=== PATIENT | female | born 1970 | race Caucasian/White ===

== ENCOUNTER → 2017-12-30 16:18 | Outpatient (CLI) | payer OTHER, SELFPAY ==
--- NOTE | 2017-12-30 17:05 | MRI_ITS ---
STUDY: MRI CERVICAL SPINE WITHOUT CONTRAST REASON FOR EXAM: Female, 47 years old. Radiculopathy of the left arm TECHNIQUE: Standardized fat and water weighted pulse sequences were obtained in the sagittal and axial planes. COMPARISON: November 22 2009 FINDINGS: Normal foramen magnum and brainstem-cervical cord junction. Normal craniovertebral junction. Normal anterior atlantoaxial articulation. Normal odontoid process. Decreased cervical lordosis. Normal vertebral bodies and posterior osseous elements. C2-3: Normal endplates. Normal disc height, signal and morphology. Normal central canal and intervertebral neural foramina. C3-4: Normal endplates. Normal disc height, signal and morphology. Normal central canal and intervertebral neural foramina. C4-5: Normal endplates. Normal disc height, signal and tiny central disc protrusion.. Normal central canal and intervertebral neural foramina. C5-6: Mild spurring.. Normal disc height, signal and minor bulging disc osteophyte complex. Normal central canal. Minor bilateral neural foraminal encroachment secondary to disc and bony hypertrophy. C6-7: Normal endplates. Normal disc height, signal and minor bulging of the disc with moderate size left posterolateral/foraminal disc/osteophyte protrusion. Mild narrowing of the central canal on the left with impingement upon the ventral surface of the cord and severe left neuroforaminal stenosis C7-T1: Normal endplates. Normal disc height, signal and morphology. Normal central canal and intervertebral neural foramina. Normal cervical cord. Normal visualized soft tissue structures. MRI/Spine Cervical (Routine) IMPRESSION: Minor bilateral neural foraminal encroachment at C5-6 secondary to bony hypertrophy. Mild narrowing of the the central canal on the left at C6-7 with impingement on the cord and severe left neuroforaminal stenosis due to disc and bony hypertrophy Electronically Signed: Magnus Pierce MD at 21:36 EDT , Service support ,
== END ==
LOC: MRI 16:20
PROVIDERS: Family Provider Family Medicine; PCP Family Medicine; Referring Provider Chiropractor; Visit Provider Chiropractor
DX: M99.01 Segmental and somatic dysfunction of cervical region (principal); M54.12 Radiculopathy, cervical region
CPT/HCPCS: 72141

== ENCOUNTER 2018-12-03 14:17 | Emergency (ER) | payer OTHER, SELFPAY ==
[2018-12-03 14:17] VITALS: BP 143/84; PULSE 77; RESP 16; TEMP 36.1; O2SAT 97; BMI 35.5
--- NOTE | 2018-12-03 14:19 | EKG12_ITS ---
Test Reason : CP Blood Pressure : / mmHG Vent. Rate : 072 BPM Atrial Rate : 072 BPM P-R Int : 164 ms QRS Dur : 086 ms QT Int : 386 ms P-R-T Axes : 038 008 014 degrees QTc Int : 422 ms Normal sinus rhythm Normal ECG Confirmed by IZABELLA JERNIGAN, SAMEER ([id number]), commercial production editor YO EARLY ([id number]) on 12/05/2018 1:42:59 PM Referred By: АНДРЕЙ/RAYMOND Confirmed By:ALICIA PAREKH MD
[2018-12-03 14:34] LABS: Absolute Lymphocyte Count 2.91 X10^3/uL (0.83-4.51); Absolute Neutrophil Count 4.7 X10^3/uL (2.0-7.7); Basophil# 0.07 X10^3/uL; Basophil% 0.8 % (0-1); Eosinophil# 0.26 X10^3/uL; Eosinophils% 3.1 % (0-5); Hemoglobin 13.1 g/dL (12.0-15.0); Lymphocyte # 2.91 X10^3/ul (4.0); Lymphocyte % 34.3 % (19-41); Mean Corp Hgb Conc 33.6 g/dL (32-36); Mean Corpuscular Hgb 30.4 pg (27.0-32.0); Mean Corpuscular Volume 90.5 fL (81-99); Mean Platelet Vol. 10.6 fl (6.2-12.0); Monocyte% 5.9 % (0-10); NRBC Flagged by Analyzer 0 % (0-5); Neutrophil # 4.72 X10^3/uL (2.7-7.7); Neutrophil % 55.5 % (47-70); POSITIVE MORPHOLOGY YES; Platelet Count 240 K/mm3 (150-450); RBC Distribution Width CV 13.4 % (11.6-14.6); RBC Distribution Width SD 44.4 fl (35.1-43.9); Red Blood Count 4.31 M/mm3 (4.2-5.4); White Blood Count 8.5 K/mm3 (4.4-11.0)
--- NOTE | 2018-12-03 14:35 | RAD_ITS ---
STUDY: X-RAY CHEST REASON FOR EXAM: Female, 48 years old. Chest pain. TECHNIQUE: PA and lateral views of the chest. COMPARISON: Comparison is made with prior study dated April 05, 2016. FINDINGS: Mild degree of increased markings at the lung bases suggestive of mild bibasilar scarring. There is no demonstrated pleural abnormality. Normal size heart. Normal mediastinum and lola. Normal visualized pulmonary arteries. Normal visualized aortic arch and descending thoracic aorta. There are degenerative changes of the visualized thoracic spine. Normal visualized ribs, clavicles, and shoulders. There is no demonstrated abnormality of the visualized soft tissue structures of the upper abdomen. RAD/Chest 1 View IMPRESSION: Mild increase interstitial markings at the lung bases suggestive of bibasilar scarring. Electronically Signed: Kirby Escoto, at 15:12 EDT , Service support ,
[2018-12-03 14:36] LABS: Differential Indicated SCAN CRITERIA MET
[2018-12-03 14:54] LABS: Anion Gap 3 (5-15); BUN 12 mg/dL (7-18); BUN/Creat Ratio 13.4 RATIO (10-20); Calcium,Total 8.9 mg/dL (8.5-10.1); Chloride 108 mmol/L (98-107); EST Glomerular Filtration Rate 71 mL/min (>60); Est Glom Filt Rate - Afr Amer 86 mL/min (>60); Estimated Creatinine Clearance 70.78 ml/min; Glucose 88 mg/dL (74-106); Potassium 4.1 mmol/L (3.5-5.1); Sodium Level 139 mmol/L (136-145)
--- NOTE | 2018-12-03 14:58 | ED.VISSUMM ---
- ER Visit Summary Date of Service: 12/03/18 Chief Complaint: Palpitations History of Present Illness: The patient is a [address] Galvan. She reports that she has palpitations that began yesterday. States these are intermittent and seems as though they last for just 2 beats. She reports is happening multiple times per hour. Nothing seems to bring these on including exertion. She denies any chest pain. No associated nausea, vomiting, diaphoresis, shortness of breath. Patient denies any chest pain or change in dyspnea exertion in the past month. She has had a nonproductive cough for the past 2 weeks. No fever or chills. She also reports that she is having slight reflux. States that this is relieved with wyil-xhl-zgrwyki medications as needed. Patient had a heart catheterization in 2016 that did not require stents. She does have a family history, high blood pressure, and high cholesterol as her cardiac risk factors. Physical Examination: Vitals: Stable. Afebrile. General: Well-nourished and well-developed. Head: Normocephalic atraumatic. Neck: Supple, no lymphadenopathy. No JVD. Nontender. Cardiovascular: Regular rate and rhythm. No murmurs. Respiratory: No respiratory distress. Clear to auscultation bilaterally. Abdominal: Soft, nontender, nondistended, normal bowel sounds. No guarding, rebound, or peritoneal signs. Back: Nontender. Extremities: Nontender, no edema. Skin: Normal color, no rash. Neurologic: Alert and oriented ?3. Cranial nerves II through XII are intact. Normal strength and sensation. Psych: Normal affect. Test Results: EKG is sinus at 72. No acute changes. Is unchanged from 2017. Chest x-ray shows chronic changes. CBC is normal. Chem-7 shows a chloride of 108. Troponin is negative. TSH is 9.38. Emergency Department Course and Treatment: Patient is resting comfortably. She has had no ectopy on the monitor. Treatment Plan: Patient will be discharged instructions to follow-up Dr. Galvan in 3 to 5 days for another exam. I did discuss that her that her TSH is elevated and that she needs to speak with him about the dosing of her Synthroid. Also needs further evaluation for her palpitations. She is instructed to return to emerge department for any worsening symptoms or chest pain. Disposition: To home in improved and stable condition. Impression: 1. Palpitations. This note was generated with [employer] dictation software. It may contain incorrect words, spelling, and punctuation that were not noted in review of the chart prior to signing ED Disposition - Plan for ED Patient: Instructions: Palpitations Referrals: Tree Galvan MD [Primary Care Provider] - 3-5 Days
[2018-12-03 15:29] LABS: Thyroid Stim Hormone (TSH) 9.38 uIU/mL (0.358-3.74)
[2018-12-03 15:42] VITALS: BP 123/60; PULSE 63; RESP 15; O2SAT 98
--- NOTE | 2018-12-03 15:43 | ED.RN ---
PT GIVEN WRITTEN AND VERBAL DISCHARGE INSTRUCTIONS AND HOME GOING INSTRUCTIONS. PT VERBALIZES UNDERSTANDING AND DENIES ANY FURTHER QUESTIONS. PT IS TO FOLLOW UP WITH PCP. IV D/C AND COVERED WITH 2X2 GAUZE AND PAPER TAPE, PRESSURE APPLIED TO SITE X2 MIN. PT DRESSES SELF AND AMBULATES OUT OF DEPT WITH SPOUSE.
== END 2018-12-03 15:45 | disposition home or self-care (01) ==
PROVIDERS: Emergency Provider Emergency Medicine; Family Provider Family Medicine; PCP Family Medicine
DX: R00.2 Palpitations (principal); R79.89 Other specified abnormal findings of blood chemistry; R05 Cough; K21.9 Gastro-esophageal reflux disease without esophagitis; I10 Essential (primary) hypertension; E78.00 Pure hypercholesterolemia, unspecified; E03.9 Hypothyroidism, unspecified; Z79.82 Long term (current) use of aspirin; Z79.899 Other long term (current) drug therapy; F17.200 Nicotine dependence, unspecified, uncomplicated
CPT/HCPCS: 71045; 80048; 84443; 84484; 85025; 93005; 99284; A4216

== ENCOUNTER 2019-09-03 22:10 | Emergency (ER) | payer OTHER, SELFPAY ==
[2019-09-03 22:11] VITALS: BP 153/91; PULSE 86; RESP 16; TEMP 36.4; O2SAT 96; BMI 37.1
--- NOTE | 2019-09-03 22:49 | EKG12_ITS ---
Test Reason : GENERAL ILLNESS Blood Pressure : / mmHG Vent. Rate : 072 BPM Atrial Rate : 072 BPM P-R Int : 184 ms QRS Dur : 090 ms QT Int : 412 ms P-R-T Axes : 052 011 039 degrees QTc Int : 451 ms Normal sinus rhythm Normal ECG Confirmed by JIE JERNIGAN, MERT ([id number]), film editor YO EARLY ([id number]) on 09/08/2019 10:56:19 AM Referred By: ALBERT Confirmed By:MERT CERON MD
--- NOTE | 2019-09-03 22:49 | RAD_ITS ---
STUDY: X-RAY CHEST REASON FOR EXAM: Female, 48 years old. Jarrell like she was going to pass out multiple times today. TECHNIQUE: Frontal and lateral views of the chest. COMPARISON: December 03, 2018 FINDINGS: Increased interstitial markings in the lung bases are unchanged. There is no demonstrated pleural abnormality. Normal size heart. Normal mediastinum and lola. Normal visualized pulmonary arteries. Normal visualized aortic arch and descending thoracic aorta. Normal visualized thoracic spine. Normal visualized ribs, clavicles, and shoulders. There is no demonstrated abnormality of the visualized soft tissue structures of the upper abdomen. RAD/Chest PA and Lateral IMPRESSION: Increased interstitial markings at the lung bases unchanged. Electronically Signed: Tenzin Pollack MD at 23:41 EDT , Service support ,
--- NOTE | 2019-09-03 22:50 | ED.DCSUM_ITS ---
History of Present Illness Chief Complaint: General Illness Informant: Patient Onset: Today Narrative: Patient presents the emergency department for the evaluation of lightheadedness. Symptoms have been intermittent. She had an episode yesterday she had multiple episodes today. She denies any chest pain shortness of breath palpitations sweating. No abdominal symptoms. Symptoms have started with exertion and at rest. She has not had any syncope. She notes that about 2 months ago she had her blood pressure and her Synthroid increased. Patient notes a history of anxiety but states this does not feel like it. Earlier she had an occipital headache took some Tylenol. At that time she also experiencing lightheadedness the headache is resolved but her lightheadedness still comes and goes. She has been seen reportedly several times for TIAs and recently also started Plavix. Past Medical History - Allergies and Home Meds Allergies/Adverse Reactions: Allergies fish oil Adverse Reaction (Verified 09/03/19 22:13) Upset Stomach Primary Care Physician: Tree Galvan MD [Primary Care Provider] - Smoking Status: Current every day smoker - Family History Paternal Family History: Reports: Heart Disease - History of PR and stents Review of Systems General: Reports: - - Lightheadedness. Denies: Chills, Fever, Sweats Eyes: Denies: Visual changes - bilaterally, Diplopia ENT: Denies: Rhinorrhea, Sore throat Cardiovascular: Denies: Chest pain, Palpitations, Heart racing Respiratory: Denies: Dyspnea, Cough, Dyspnea on exertion Gastrointestinal: Denies: Abdominal pain, Nausea, Vomiting, Diarrhea, Melena, Hematochezia Genitourinary: Denies: Dysuria, Hematuria, Frequency Musculoskeletal: Denies: Back pain, Extremity Pain Skin: Denies: Rash, Wounds Neurological: Reports: Parasthesia - Bilateral arms upon waking in the mornings. Denies: Headache, Weakness, Numbness Psych: Reports: Anxiety Physical Exam Vital Signs/Narrative: Vital Signs Temp Pulse Resp BP Pulse Ox 09/03/19 22:11 97.5 F L 86 16 153/91 H 96 Inital Vital Signs reviewed: Yes General: Well nourished, Well developed, No Acute Distress Head: Normocephalic, Atraumatic Eyes: Perrl, EOMI ENT: Moist mucous membranes, No rhinorrhea Neck: Supple, Nontender Cardiovascular: Regular rate, Regular rhythm, No murmurs Respiratory: No distress, CTA bilaterally, Chest nontender Abdomen: Soft, Nontender, Nondistended, Normal bowel sounds Back: Nontender, Normal Inspection Extremities: Nontender, No edema Skin: Normal color, No rash Neurological: Alert, Oriented x3, Cranial nerves II-XII grossly intact, Normal Strength, Normal Sensation Psychological: Normal affect, Normal Mood Diagnostic/Tx/Re-eval Clinical Impression(s) from Imaging Studies Chest X-Ray 09/03/19 22:49 IMPRESSION: Increased interstitial markings at the lung bases unchanged. Electronically Signed: Tenzin Pollack MD at 23:41 EDT , Service support , Laboratory Last Values WBC 10.0 K/mm3 (4.4-11.0) 09/03/19 23:22 RBC 4.50 M/mm3 (4.2-5.4) 09/03/19 23:22 Hgb 13.4 g/dL (12.0-15.0) 09/03/19 23:22 Hct 40.9 % (37-47) 09/03/19 23:22 MCV 90.9 fL (81-99) 09/03/19 23:22 MCH 29.8 pg (27.0-32.0) 09/03/19 23:22 MCHC 32.8 g/dL (32-36) 09/03/19 23:22 RDW Std Deviation 46.5 fl (35.1-43.9) H 09/03/19 23:22 RDW Coeff of Cindy 14.0 % (11.6-14.6) 09/03/19 23:22 Plt Count 251 K/mm3 (150-450) 09/03/19 23:22 MPV 10.8 fl (6.2-12.0) 09/03/19 23:22 Immature Gran % (Auto) 0.400 % (0.0-0.9) 09/03/19 23: Neut % (Auto) 61.2 % (47-70) 09/03/19 23: Lymph % (Auto) 29.7 % (19-41) 09/03/19: [place] % (Auto) 5.8 % (0-10) 09/03/19 23:22 Eos % (Auto) 2.3 % (0-5) 09/03/19 23:22 Baso % (Auto) 0.6 % (0-1) 09/03/19 23:22 Absolute Neuts (auto) 6.1 X10^3/uL (2.0-7.7) 09/03/19 23:22 Absolute Lymphs (auto) 2.98 X10^3/uL (0.83-4.51) 09/03/19 23:22 Nucleated RBC % 0 % (0-5) 09/03/19 23:22 Sodium 138 mmol/L (136-145) 09/03/19 23:22 Potassium 3.8 mmol/L (3.5-5.1) 09/03/19 23:22 Chloride 105 mmol/L (98-107) 09/03/19 23:22 Carbon Dioxide 28.0 mmol/L (21.0-32.0) 09/03/19 23:22 Anion Gap 5 (5-15) 09/03/19 23:22 BUN 12 mg/dL (7-18) 09/03/19 23:22 Creatinine 0.79 mg/dL (0.55-1.02) 09/03/19 23:22 Estim Creat Clear Calc 80.64 ml/min 09/03/19 23:22 Est GFR (MDRD) Af Amer 100 mL/min (>60) 09/03/19 23:22 Est GFR (MDRD) Non-Af 82 mL/min (>60) 09/03/19 23:22 BUN/Creatinine Ratio 15.3 RATIO (10-20) 09/03/19 23:22 Glucose 105 mg/dL (74-106) 09/03/19 23:22 Calcium 8.5 mg/dL (8.5-10.1) 09/03/19 23:22 Total Bilirubin 0.20 mg/dL (0.20-1.00) 09/03/19 23:22 AST 17 U/L (15-37) 09/03/19 23:22 ALT 23 U/L (13-56) 09/03/19 23:22 Alkaline Phosphatase 99 U/L (45-117) 09/03/19 23:22 Troponin I < 0.015 ng/mL (<0.045) 09/03/19 23:22 Total Protein 7.1 g/dL (6.4-8.2) 09/03/19 23:22 Albumin 3.4 g/dL (3.2-5.0) 09/03/19 23:22 Globulin 3.7 g/dL (2.2-4.2) 09/03/19:22 Albumin/Globulin Ratio 0.9 RATIO (0.9-2.4) 09/03/19 23:22 TSH 10.40 uIU/mL (0.358-3.74) H 09/03/19 23:22 Urine Color Yellow (Yellow) 09/03/19 23:10 Urine Clarity Clear (Clear) 09/03/19 23:10 Urine pH 7.0 (5.0 - 8.0) 09/03/19 23:10 Ur Specific [place] 1.015 (1.002-1.030) 09/03/19 23:10 Urine Protein Negative mg/dl (Negative) 09/03/19 23:10 Urine Glucose (UA) Normal mg/dl (Normal) 09/03/19 23:10 Urine Ketones Negative mg/dl (Negative) 09/03/19 23:10 Urine Occult Blood Negative /ul (Negative) 09/03/19 23:10 Urine Nitrite Negative (Negative) 09/03/19 23:10 Urine Bilirubin Negative mg/dL (Negative) 09/03/19 23:10 Urine Urobilinogen Normal mg/dl (Normal) 09/03/19 23:10 Ur Leukocyte Esterase Negative /ul (Negative) 09/03/19 23:10 Urine RBC 0 SEEN /hpf (0-5) 09/03/19 23:10 Urine WBC 0 SEEN /hpf (0-5) 09/03/19 23:10 Ur Squamous Epith Cells 0 SEEN /hpf (5-10) 09/03/19 23:10 Urine Bacteria 0 SEEN /hpf (None Seen) 09/03/19 23:10 Urine Mucus 0 SEEN /hpf (<or=2+) 09/03/19 23:10 Urine Test Negative Negative 09/03/19 23:10 - EKG Initial EKG Interpretation: Sinus Rhythm - EKG demonstrates a normal sinus rhythm at a rate of 72 - Medical Decision Making Patient had no events on the monitor. Orthostatic standing pressure is negative. She is not had any symptoms that she is been here. Her work-up is essentially negative other than an elevated TSH. I would recommend that the patient follow-up with her primary care physician. Of asked that she call them tomorrow so they can look at her labs and make recommendations. ED Disposition - Plan for ED Patient: Disposition: Home or Assisted Living Diagnosis: Lightheadedness, Elevated TSH Referrals: Tree Galvan MD [Primary Care Provider] - As soon as possible Additional Instructions: Your TSH today was 10.4. Please contact your doctors office in the morning to discuss your symptoms and your testing tonight.
[2019-09-03 23:27] LABS: Bacteria 0 SEEN /hpf (None Seen); Color, Urine Yellow (Yellow); Glucose, Dipstick Normal (Normal); Ketone-Dipstick Negative (Negative); Leukocyte Esterase-Dipstick Negative /ul (Negative); Mucous, Urine 0 SEEN /hpf (<or=2+); Nitrite-Dipstick Negative (Negative); Occult Blood-Urine Negative /ul (Negative); Protein-Dipstick Negative (Negative); Red Blood Cells-Urine 0 SEEN /hpf (0-5); Specific Gravity, Urine 1.015 (1.002-1.030); Squamous Epithelial Cells - UA 0 SEEN /hpf (5-10); Urine Bilirubin Dipstick Negative (Negative); Urine Clarity Clear (Clear); Urine Urobilinogen Normal (Normal); White Blood Cells 0 SEEN /hpf (0-5)
[2019-09-03 23:32] LABS: Internal QC Validated? YES +Cl - CLEAR BKGD; Pregnancy, Urine Negative Negative
[2019-09-03 23:37] LABS: Absolute Lymphocyte Count 2.98 X10^3/uL (0.83-4.51); Absolute Neutrophil Count 6.1 X10^3/uL (2.0-7.7); Basophil# 0.06 X10^3/uL; Basophil% 0.6 % (0-1); Eosinophil# 0.23 X10^3/uL; Eosinophils% 2.3 % (0-5); Hematocrit 40.9 % (37-47); Hemoglobin 13.4 g/dL (12.0-15.0); Lymphocyte # 2.98 X10^3/ul (4.0); Lymphocyte % 29.7 % (19-41); Mean Corp Hgb Conc 32.8 g/dL (32-36); Mean Corpuscular Hgb 29.8 pg (27.0-32.0); Mean Corpuscular Volume 90.9 fL (81-99); Mean Platelet Vol. 10.8 fl (6.2-12.0); Monocyte# 0.58 X10^3/uL; Monocyte% 5.8 % (0-10); NRBC Flagged by Analyzer 0 % (0-5); Neutrophil # 6.14 X10^3/uL (2.7-7.7); Neutrophil % 61.2 % (47-70); Platelet Count 251 K/mm3 (150-450); RBC Distribution Width SD 46.5 fl (35.1-43.9)
[2019-09-03 23:55] LABS: ALB/GLOB Ratio 0.9 RATIO (0.9-2.4); AST(SGOT) 17 U/L (15-37); Alanine Aminotransfer ALT/SGPT 23 U/L (13-56); Albumin, Serum 3.4 g/dL (3.2-5.0); Alkaline Phosphatase 99 U/L (45-117); Anion Gap 5 (5-15); BUN 12 mg/dL (7-18); BUN/Creat Ratio 15.3 RATIO (10-20); Calcium,Total 8.5 mg/dL (8.5-10.1); Chloride 105 mmol/L (98-107); Creatinine, Serum 0.79 mg/dL (0.55-1.02); EST Glomerular Filtration Rate 82 mL/min (>60); Est Glom Filt Rate - Afr Amer 100 mL/min (>60); Estimated Creatinine Clearance 80.64 ml/min; Globulin 3.7 g/dL (2.2-4.2); Glucose 105 mg/dL (74-106); Potassium 3.8 mmol/L (3.5-5.1); Protein, Total 7.1 g/dL (6.4-8.2); Sodium Level 138 mmol/L (136-145)
[2019-09-04 00:29] VITALS: BP 139/94; PULSE 78
[2019-09-04 00:30] VITALS: BP 139/94; PULSE 78; RESP 16; O2SAT 99
== END 2019-09-04 00:54 | disposition home or self-care (01) ==
PROVIDERS: Emergency Provider Emergency Medicine; PCP Family Medicine
DX: R42 Dizziness and giddiness (principal); R94.6 Abnormal results of thyroid function studies; F17.200 Nicotine dependence, unspecified, uncomplicated; Z86.73 Personal history of transient ischemic attack (TIA), and cerebral infarction without residual deficits; Z79.02 Long term (current) use of antithrombotics/antiplatelets; Z79.899 Other long term (current) drug therapy
CPT/HCPCS: 71046; 80053; 81001; 81025; 84443; 84484; 85025; 93005; 99285; A4216

== ENCOUNTER 2021-01-05 17:45 | Emergency (ER) | payer MEDICAID, SELFPAY ==
[2021-01-05 17:46] VITALS: BP 152/88; PULSE 89; RESP 16; TEMP 36.1; O2SAT 98; BMI 32.3
--- NOTE | 2021-01-05 17:55 | EKG12_ITS ---
Test Reason : CP Blood Pressure : / mmHG Vent. Rate : 086 BPM Atrial Rate : 086 BPM P-R Int : 174 ms QRS Dur : 074 ms QT Int : 366 ms P-R-T Axes : 047 014 035 degrees QTc Int : 437 ms Normal sinus rhythm Normal ECG Confirmed by JIE JERNIGAN, MERT ([id number]), editorial clerk YO EARLY ([id number]) on 01/10/2021 8:42:15 AM Referred By: BB Confirmed By:MERT CERON MD
[2021-01-05 18:13] LABS: Absolute Lymphocyte Count 3.85 X10^3/uL (0.83-4.51); Basophil# 0.07 X10^3/uL; Basophil% 0.6 % (0-1); Eosinophil# 0.22 X10^3/uL; Eosinophils% 1.9 % (0-5); Hematocrit 41.8 % (37-47); Hemoglobin 13.7 g/dL (12.0-15.0); Lymphocyte # 3.85 X10^3/ul (0.83-4.51); Lymphocyte % 32.8 % (19-41); Mean Corp Hgb Conc 32.8 g/dL (32-36); Mean Corpuscular Volume 85.5 fL (81-99); Mean Platelet Vol. 10.3 fl (6.2-12.0); Monocyte# 0.55 X10^3/uL; Monocyte% 4.7 % (0-10); NRBC Flagged by Analyzer 0 % (0-5); Neutrophil # 6.99 X10^3/uL (2.7-7.7); Neutrophil % 59.7 % (47-70); Platelet Count 323 K/mm3 (150-450); RBC Distribution Width CV 14.1 % (11.6-14.6); RBC Distribution Width SD 43.4 fl (35.1-43.9); Red Blood Count 4.89 M/mm3 (4.2-5.4); White Blood Count 11.7 K/mm3 (4.4-11.0)
--- NOTE | 2021-01-05 18:25 | RAD_ITS ---
STUDY: X-RAY CHEST REASON FOR EXAM: Female, 50 years old. CHEST PAIN TECHNIQUE: AP portable COMPARISON: 09/03/2019 FINDINGS: Minor chronic interstitial changes in the lower lobes.. There is no demonstrated pleural abnormality. Normal size heart. Normal mediastinum and lola. Normal visualized pulmonary arteries. Normal visualized aortic arch and descending thoracic aorta. Normal visualized thoracic spine. Normal visualized ribs, clavicles, and shoulders. There is no demonstrated abnormality of the visualized soft tissue structures of the upper abdomen. No significant change since prior exam RAD/Chest 1 View (Portable) IMPRESSION: No acute cardiopulmonary pathology Electronically Signed: Magnus Pierce MD at 19:38 EDT , Service support ,
[2021-01-05 18:28] LABS: Anion Gap 6 (5-15); BUN 9 mg/dL (7-18); BUN/Creat Ratio 12.5 RATIO (10-20); Calcium,Total 8.9 mg/dL (8.5-10.1); Chloride 108 mmol/L (98-107); Creatinine, Serum 0.72 mg/dL (0.55-1.02); EST Glomerular Filtration Rate 90 mL/min (>60); Est Glom Filt Rate - Afr Amer 109 mL/min (>60); Estimated Creatinine Clearance 86.54 ml/min; Glucose 102 mg/dL (74-106); Potassium 3.9 mmol/L (3.5-5.1); Sodium Level 140 mmol/L (136-145); Troponin-I HS 5 pg/mL (3.0-54.0)
--- NOTE | 2021-01-05 18:38 | ED.VIS.CHEST ---
HPI History of Present Illness Chief Complaint: Chest Pain Narrative Narrative: Patient presents intermittent chest pressure for the past week. Intermittent lightheaded symptoms. No syncopal episodes. Denies vomiting diarrhea. Denies urinary symptoms. States just does not feel well for the past week. Denies cough symptoms. No headache. History of hypertension, hypercholesterolemia, tobacco. Father does have history of coronary disease. Reports stress test 5 years ago she had a heart cath about 5 years ago also. There is no intervention. She states it was done here. No PE risk factors. Takes baby aspirin daily. Reviewing records March 2015 heart cath performed by Dr. Salguero EF 65% minimal left circumflex irregularity. All other vessels were normal. She had abnormal stress test leading to this heart cath. Prior Similar Symptoms: Yes CVD Risk Factors: Positive for Hypertension, Hypercholesterolemia, Family History 1' </=55 and Smoking PFSH PFSH Home Medications aspirin 81 mg PO DAILY@0800 04/04/15 [History Last Taken Unknown] levothyroxine 100 mcg PO DAILY 04/04/15 [History Last Taken Unknown] lisinopril 10 mg PO DAILY 04/04/15 [History Last Taken Unknown] atorvastatin 80 mg PO DAILY 09/04/19 [History Last Taken Unknown] clopidogrel 75 mg PO DAILY 09/04/19 [History Last Taken Unknown] Allergy/AdvReac Type Severity Reaction Status Date / Time fish oil AdvReac Upset Verified 01/05/21 17:48 Stomach Social History Smoking Status: Current every day smoker tobacco type: cigarettes ROS ROS ED Constitutional Constitutional ED: Denies chills, fever(s) or sweats Eyes Eyes: Denies change in vision ENT ENT ED: Denies dysphagia or sore throat Cardiovascular Cardiovascular: Reports chest pain; Denies leg edema, palpitations or racing heartbeat Respiratory/Chest Respiratory/Chest: Denies cough, dyspnea or dyspnea on exertion Gastrointestinal Gastrointestinal: Denies abdominal pain, diarrhea, nausea or vomiting Genitourinary Genitourinary ED: Denies dysuria, hematuria or urinary frequency Musculoskeletal Musculoskeletal: Denies back pain, extremity pain or neck pain Integumentary Denies rash or wounds Neurologic Neurologic: Denies headache(s), paresthesias or weakness EXAM Physical Exam Const Vital Signs: 01/05/21 17:46 01/05/21 18:46 01/05/21 19:10 Temperature 97.0 F L Temperature Source Temporal Pulse Rate 89 74 75 Respiratory Rate 16 16 18 Respiratory Effort Normal Non-Labored Blood Pressure 152/88 H 118/71 113/72 Blood Pressure Mean 109 86 85 Pulse Ox 98 96 Oxygen Delivery Method Room Air Room Air 01/05/21 20:04 01/05/21 21:13 Temperature Temperature Source Pulse Rate 68 71 Respiratory Rate 17 18 Respiratory Effort Blood Pressure 128/65 H 125/85 H Blood Pressure Mean 86 Pulse Ox 96 98 Oxygen Delivery Method Room Air Positive well nourished and well developed General Appearance ED: well developed and NAD HEENT Reports moist mucous membranes normocephalic and atraumatic Eyes PERRL, EOMs intact bilaterally and conjunctivae normal General Eye ED: Yes normal appearance of both eyes Neck no lymphadenopathy and supple General: Negative for tenderness Chest Wall Chest: Negative for tenderness Resp normal respiratory effort and normal air movement Effort and Inspection: symmetric chest movement; Negative for respiratory distress Cardio regular rate, regular rhythm and no murmurs Peripheral Pulses: pulses 2+ throughout GI normal to inspection, nondistended, normoactive bowel sounds and non-tender Palpation: Negative for guarding or rebound tenderness present Back/Spine no CVA tenderness and no thoracic nor lumbar tenderness Extremity normal to inspection General Extremety ED: Negative for edema or tenderness General Extremity: Negative for edema Neuro oriented x3 and no sensory deficits noted Sensorium / Orientation: awake and alert Skin no rashes or lesions noted and no wounds Heart Score History: Slightly/Non-Suspicious ECG: Normal Age: >45 - <65 years Risk Factors: 1 or 2 Risk Factors Troponin: </= Normal Limit Score: 2 MDM MDM MDM Narrative Medical decision making narrative: Patient EKG nonspecific findings. Cardiac work-up troponin negative x2. Heart score is a 2. Patient has had a heart cath [address] Salguero due to abnormal stress test. Minimal findings from the left circumflex. Patient reassured symptom-free on reevaluation. She will follow-up with cardiology as an outpatient. Signs and symptoms discussed return. All questions were answered. Lab Data Attestation: I reviewed the patient's lab results. Labs: Laboratory Results - last 24 hr 01/05/21 01/05/21 01/05/21 18:00 18:00 19:51 WBC 11.7 H RBC 4.89 Hgb 13.7 Hct 41.8 MCV 85.5 MCH 28.0 MCHC 32.8 RDW Std Deviation 43.4 RDW Coeff of Cindy 14.1 Plt Count 323 MPV 10.3 Immature Gran % (Auto) 0.300 Neut % (Auto) 59.7 Lymph % (Auto) 32.8 [place] % (Auto) 4.7 Eos % (Auto) 1.9 Baso % (Auto) 0.6 Absolute Neuts (auto) 7.0 Absolute Lymphs (auto) 3.85 Nucleated RBC % 0 Sodium 140 Potassium 3.9 Chloride 108 H Carbon Dioxide 26.0 Anion Gap 6 BUN 9 Creatinine 0.72 Estim Creat Clear Calc 86.54 Est GFR (MDRD) Af Amer 109 Est GFR (MDRD) Non-Af 90 BUN/Creatinine Ratio 12.5 Glucose 102 Calcium 8.9 Troponin I High Sens 5 4 Radiography Chest X-Ray - ED: 1 View, Read by ED Physician and Read by Radiologist Diagnostic Testing: Clinical Impression(s) from Imaging Studies Chest X-Ray 01/05/21 18:25 IMPRESSION: No acute cardiopulmonary pathology Electronically Signed: Magnus Pierce MD at 19:38 EDT , Service support , EKG Initial EKG: Attestation: I personally reviewed and interpreted this EKG as follows: Comments: Sinus rate of 86, no ST changes. Isolated T wave version leads III. Nonspecific. Discharge Plan Triage Chief Complaint: Chest Pain ED Provider: Enrique Ramachandran Dx/Rx/DC Orders Clinical Impression: Chest pain Instructions: ED Chest Pain, Uncertain Cause Prescriptions: No Action levothyroxine 75 MCG tablet 100 mcg PO DAILY RF: 0 lisinopril 10 MG tablet 10 mg PO DAILY RF: 0 aspirin 81 MG Tab.Chew 81 mg PO DAILY@0800 RF: 0 atorvastatin 80 mg tablet 80 mg PO DAILY RF: 0 clopidogrel 75 MG tablet 75 mg PO DAILY RF: 0 Primary Care Provider: Tree Galvan Referrals: Tayo Salguero MD [STAFF PHYSICIAN] - 3-5 Days Tree Galvan MD [Primary Care Provider] - Disposition Disposition: Home, Self Care Discharge Date/Time: 01/05/21 21:13
[2021-01-05 18:46] VITALS: BP 118/71; PULSE 74; RESP 16
[2021-01-05 19:10] VITALS: BP 113/72; PULSE 75; RESP 18; O2SAT 96
[2021-01-05 20:04] VITALS: BP 128/65; PULSE 68; RESP 17; O2SAT 96
[2021-01-05 20:12] LABS: Troponin-I HS 4 pg/mL (3.0-54.0)
[2021-01-05 21:13] VITALS: BP 125/85; PULSE 71; RESP 18; O2SAT 98
== END 2021-01-05 21:13 | disposition home or self-care (01) ==
PROVIDERS: Emergency Provider Emergency Medicine; PCP Family Medicine
DX: R07.89 Other chest pain (principal); F17.210 Nicotine dependence, cigarettes, uncomplicated
CPT/HCPCS: 71045; 80048; 84484; 85025; 93005; 99282; A4216

== ENCOUNTER 2021-03-24 17:29 | Outpatient (CLI) | payer MEDICAID, SELFPAY ==
[2021-03-24 17:36] VITALS: BP 126/69; PULSE 69; RESP 16; TEMP 36.4; O2SAT 97; BMI 31.9
[2021-03-24] MEDS: 0.9% Saline Lock 10 ML Syringe IV (17:48)
[2021-03-24 18:10] VITALS: BP 115/69; PULSE 76; RESP 16; TEMP 36.7; O2SAT 97
[2021-03-24 19:05] VITALS: BP 120/62; PULSE 60; RESP 16; TEMP 36.9; O2SAT 96
== END 2021-03-24 23:59 | disposition home or self-care (01) ==
LOC: MS3OUT 17:30 → MS3 17:30
PROVIDERS: PCP Family Medicine; Referring Provider Nurse Practitioner Adult Health; Visit Provider Nurse Practitioner Adult Health
DX: Z23 Encounter for immunization (principal); U07.1 COVID-19
CPT/HCPCS: J7050; M0243; A4216; Q0244

== ENCOUNTER 2021-10-20 12:00 | Emergency (ER) | payer MEDICAID, SELFPAY ==
[2021-10-20 12:00] VITALS: BP 90/45; PULSE 78; RESP 16; TEMP 36.4; O2SAT 98; BMI 28.8
--- NOTE | 2021-10-20 12:39 | ED.RN ---
PT. UP AND AMBULATING TALKING ON PHONE WHILE WAITING IN WAITING ROOM. NO DIFFICULTY NOTED.
--- NOTE | 2021-10-20 13:15 | ED.RN ---
PT. WANTED TO STEP OUTSIDE. THIS NURSE INFORMED PT. THAT IF THEY LEAVE CAMPUS, THEY WILL HAVE TO REREGISTER AND REMINDED PT. THAT THIS IS A NO SMOKING FACILITY. ALSO, IF THEIR NAME IS CALLED AND THEY ARE NOT PRESENT, WE WILL MOVE TO NEXT IN LINE. PT. ALSO ASKED ABOUT WAIT TIME AND NURSE SATED UNABLE TO DETERMINE THAT.
--- NOTE | 2021-10-20 13:25 | VDLE_ITS ---
Reason For Study: Pain Procedure LEFT This is a venous duplex using B-mode, color GSV is normal. flow and spectral Doppler. CFV is compressible, spontaneous, phasic, Exam performed portable in ED. competent, and demonstrates normal A preliminary report was called and/or faxed augmentation. to [facility]. FV is compressible, spontaneous, phasic, competent and demonstrates normal augmentation. POP V is compressible, spontaneous, phasic, competent and demonstrates normal augmentation. T/P Trunk is compressible. PTV is compressible. LT PerV is compressible. VL/Venous Duplex US, Unilateral Interpretation Summary Deep veins of the left lower extremity are patent and compressible segmentally. There is no evidence of left lower extremity deep vein thrombosis. The left great saphenous vein yina ears patent and compressible segmentally. Ordering Physician: Bart Shaw Referring Physician: Tree Galvan Performed By: Mary Cavazos RVT
--- NOTE | 2021-10-20 13:25 | ED.VIS.LOWEX ---
HPI History of Present Illness Chief Complaint: Lower Extremity Injury Detail of Chief Complaint: pain left thigh Informant: patient Occured/Mechanism Comment: no injury Onset/Context/Timing Onset: Month(s) (3) Context: Gradual Onset Timing: Continuous Quality of Pain: - (sore) Location: left ant-med thigh Current Severity: Mild Maximum Severity: Moderate Worsened by: when more swollen, which occurs after been on feet for awhile Relieved by: rest Associated Symptoms Associated Symptoms: Negative for Parasthesia, Weakness or Loss of Funtion Narrative Narrative: Patient states she was referred here by urgent care. She has had symptoms in her left thigh for 3 months, she states it is sore from the anteromedial aspect of the knee up the anterior aspect of the thigh toward but not to the groin. Right now she agrees that it is not swollen, but states that when she has been on her feet for a while specially at work, there are irregular mounded areas of swelling along this linear distribution of discomfort, that makes it hurt more. She has had no edema distal to all of this. No calf pain. No recent immobilization or long travel, she states she works a lot and is on her feet a lot. No chest pain, shortness of breath, lightheadedness, palpitations, or other systemic symptoms. [facility] Medical History (Updated 10/20/21 @ 13:[address] Bart Shaw MD) Acquired hypothyroidism Anxiety disorder BMI 30.0-30.9,adult HTN (hypertension) Home Medications aspirin 81 mg chewable tablet 81 mg PO DAILY@0800 04/04/15 [History Last Taken Unknown] levothyroxine 75 mcg tablet 100 mcg PO DAILY 04/04/15 [History Last Taken Unknown] lisinopril 10 mg tablet 10 mg PO DAILY 04/04/15 [History Last Taken Unknown] atorvastatin 80 mg tablet 80 mg PO DAILY 09/04/19 [History Last Taken Unknown] levofloxacin 500 mg tablet 500 tablet PO DAILY 03/19/21 [History Last Taken Unknown] prednisone 20 mg tablet 40 mg PO DAILY #14 tabs 03/19/21 [Rx Last Taken Unknown] Allergy/AdvReac Type Severity Reaction Status Date / Time fish oil AdvReac Upset Verified 10/20/21 12:02 Stomach Social History Smoking Status: Current every day smoker tobacco type: cigarettes ROS ROS ED Constitutional Constitutional ED: Denies chills or fever(s) Musculoskeletal Musculoskeletal: Reports as per HPI and extremity pain; Denies neck pain Integumentary Denies Abrasions, rash or wounds Neurologic Neurologic: Denies paresthesias or weakness EXAM Physical Exam Const Vital Signs: 10/20/21 12:00 Temperature 97.6 F L Temperature Source Temporal Pulse Rate 78 Respiratory Rate 16 Blood Pressure 90/45 L Blood Pressure Mean 60 Pulse Ox 98 Oxygen Delivery Method Room Air Positive well nourished, well developed and obese General Appearance ED: well developed and NAD Nutritional Appearance: obese Neck full ROM and supple Back/Spine normal ROM and normal to inspection Extremity Extremity Narrative: There are no areas of swelling in the left thigh, nor are there any palpable cords. I can see the blue venous discoloration that may indicate varicosities but they are subtle and do not feel nodular in the area of the patient's complaints. She does not have severe/significant tenderness at the plica synovalis. Knee is otherwise benign. Neuro oriented x3, no focal motor deficits and no sensory deficits noted Sensorium / Orientation: alert Psych mental status grossly normal and thought process normal Skin no wounds Skin Narrative: No cellulitis/infections Rashes: no rashes MDM MDM MDM Narrative Medical decision making narrative: Duplex ultrasound of the left lower extremity was obtained, preliminary interpretation from the wireless technician is that there is NO DVT, SVT, Velásquez's cyst, or other acute pathology except for varicosities of the veins in the area where she complains. I reassured the patient, give her appropriate discharge instructions follow-up with her doctor as needed. 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, Acute pain of left thigh Instructions: ED Varicose Veins Prescriptions: No Action levofloxacin 500 mg tablet 500 tablet PO DAILY prednisone 20 mg tablet 40 mg PO DAILY Qty: 14 0RF levothyroxine 75 MCG tablet 100 mcg PO DAILY Label Comments: THYROID lisinopril 10 MG tablet 10 mg PO DAILY Label Comments: BLOOD PRESSURE/HEART aspirin 81 MG tablet,chewable 81 mg PO DAILY@0800 Label Comments: HEART HEALTH atorvastatin 80 mg tablet 80 mg PO DAILY Label Comments: TAKE 1 TABLET BY MOUTH EVERYDAY AT BEDTIME Primary Care Provider: Tree Galvan Referrals: Tree Galvan MD [Primary Care Provider] - 1-2 Weeks Disposition Disposition: Home, Self Care
[2021-10-20 13:48] VITALS: RESP 16
== END 2021-10-20 13:57 | disposition home or self-care (01) ==
PROVIDERS: Emergency Provider Emergency Medicine; PCP Family Medicine; Visit Provider Emergency Medicine
DX: I83.92 Asymptomatic varicose veins of left lower extremity (principal); M79.652 Pain in left thigh; I10 Essential (primary) hypertension; F17.210 Nicotine dependence, cigarettes, uncomplicated; E66.9 Obesity, unspecified; E03.9 Hypothyroidism, unspecified; Z79.82 Long term (current) use of aspirin; Z79.899 Other long term (current) drug therapy
CPT/HCPCS: 93971; 99282

== ENCOUNTER 2024-03-29 11:49 | Observation (INO) | payer MEDICAID, SELFPAY ==
[2024-03-29] VITALS (10 sets, daily range): BP systolic 110–138; BP diastolic 61–73; PULSE 57–78; RESP 11–18; TEMP 36.4; O2SAT 93–100; BMI 33.0; BMI 32.5
--- NOTE | 2024-03-29 12:02 | ED.RN ---
PT STATES FOR SEVERAL DAYS SHE HAS HAD SHARP CHEST PAINS AND TINGLING ON THE LEFT SIDE OF THE FACE. IBRAHIMA CALLED. NIH SCORE OF 0. HX OF TIA AND BELLS PALSY. ADVISED
--- NOTE | 2024-03-29 12:17 | EKG12_ITS ---
Test Reason : NEURO/CP Blood Pressure : */* mmHG Vent. Rate : 64 BPM Atrial Rate : 64 BPM P-R Int : 190 ms QRS Dur : 86 ms QT Int : 406 ms P-R-T Axes : 48 -1 25 degrees QTcB Int : 418 ms Normal sinus rhythm Normal ECG Confirmed by JIE JERNIGAN, MERT ([id number]), design editor HANNAH BECKER ([id number]) on 03/30/2024 2:03:31 PM Referred By: Hu Santacruz Confirmed By: MERT CERON MD
--- NOTE | 2024-03-29 12:17 | CT_ITS ---
We are attempting to reach an attending provider to discuss findings. An addendum with communication details will be sent when the communication is complete. HISTORY: Neuro deficit, acute, stroke suspected. TECHNIQUE: Multiple axial images were obtained of the head without intravenous contrast. A radiation dose optimization technique was used for this scan. 247 images. COMPARISON: 07/21/2016. FINDINGS: BRAIN PARENCHYMA: No significant attenuation abnormality. No acute intra-axial hemorrhage. CSF SPACES: Cerebral ventricles, cortical sulci, and other extra-axial CSF spaces within normal limits in size for age. No midline shift or other significant mass effect. No acute extra-axial hemorrhage. OTHER: Intact calvarium. No significant air fluid levels in the paranasal sinuses or mastoid air cells. Unremarkable orbits. ASPECTS Score for Acute Strokes: 10 CT/STROKE Brain/Head without Cont IMPRESSION: No acute intracranial process identified. Electronically Signed: Paulette Hernandes MD at 13:28 EST ,
--- NOTE | 2024-03-29 12:17 | RAD_ITS ---
HISTORY: Neuro deficit, acute, stroke suspected. TECHNIQUE: XR Chest 1 View. COMPARISON: 01/05/2021. FINDINGS: CARDIOMEDIASTINAL BORDERS: Cardiac silhouette within normal limits in size. Mediastinal contour unremarkable. LUNGS: Radiographically clear. PLEURA: No pleural effusion or pneumothorax seen. OSSEOUS STRUCTURES: Unremarkable. RAD/Chest 1 View IMPRESSION: No acute cardiopulmonary process identified. Electronically Signed: Paulette Hernandes MD at 13:51 EST ,
--- NOTE | 2024-03-29 12:19 | EX.ED.DYSGE1 ---
HPI History of Present Illness Chief Complaint: Numb/Ting Narrative Narrative: 53-year-old female past medical history of hypertension, smoker, states she had mini strokes 15 years ago but does not take any medication for it except for an occasional baby aspirin, presents with both chest pain on the left side of her chest and numbness and tingling of her left face and sometimes her left arm. This has been present over the last few days, she cannot really state when it started, but it was greater than 24 hours ago. No exacerbating or alleviating factors. She states she has not felt well since she was seen in urgent care and diagnosed with bronchitis and treated with antibiotics. She denies any recent fevers or chills but has had a cough. She states her left chest wall feels tender. 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 [facility] Medical History Tobacco abuse Obesity Anxiety and depression HLD (hyperlipidemia) Haskins's palsy TIA (transient ischemic attack) HTN (hypertension) Acquired hypothyroidism Home Medications ?Medication ?Instructions ?Recorded ?Last Taken ?Type aspirin 81 mg chewable tablet 81 mg PO DAILY@0800 PRN pain 04/04/15 Unknown History levothyroxine 75 mcg tablet 100 mcg PO DAILY 04/04/15 Unknown History lisinopril 10 mg tablet 10 mg PO DAILY 04/04/15 Unknown History atorvastatin 80 mg tablet 80 mg PO DAILY 09/04/19 Unknown History clonazepam 1 mg tablet 1 mg PO BID PRN PRN anxiety 03/29/24 Unknown History Allergy/AdvReac Type Severity Reaction Status Date / Time fish oil AdvReac Upset Verified 03/29/24 11:54 Stomach Family History Father CAD (coronary artery disease) Heart disease Hypertension Myocardial infarction Social History household members: none Smoking Status: Current every day smoker tobacco type: cigarettes alcohol intake: current alcohol intake frequency: holidays/special occasions only substance use type: does not use ROS ROS ED ROS Narrative Constitutional: No fever, no chills. HEENT: No sore throat. No neck pain. No loss of vision. No rhinorrhea. Cardiovascular: Left-sided chest pain. No palpitations. No pedal edema. Respiratory: No cough, no shortness of breath. Abdominal: No abdominal pain. No nausea. No vomiting. Genitourinary: No dysuria. No hematuria. Musculoskeletal: No myalgias. No arthralgias. Neurologic: No headaches. No dizziness. No lightheadedness. Paresthesias of left side of face especially left side of nose and cheek as well as left upper extremity. Intermittent. Has been happening over the last few days. Skin: No rash. No change in color. Psychiatric: No depression. No anxiety. EXAM Physical Exam Const Vital Signs: 03/29/24 11:52 03/29/24 13:02 03/29/24 13:49 Temperature 97.6 F L Temperature Source Temporal Pulse Rate 72 64 Respiratory Rate 16 11 L Blood Pressure 138/70 H Blood Pressure Mean 92 Pulse Ox 100 97 99 Oxygen Delivery Method Room Air Room Air Room Air MDM MDM MDM Narrative Medical decision making narrative: Differential diagnosis for her chest pain includes ACS versus chest wall pain versus costochondritis versus pneumonia versus pneumothorax. Regarding her paresthesias, concern would be for TIA versus stroke versus electrolyte imbalance. As her symptoms have been intermittent for greater than 24 hours, I do not feel stroke team is indicated. Her NIH stroke scale is a 1 for chronic facial droop on the left. Stroke workup with troponin was instituted. EKG obtained and interpreted by myself independently. EKG on my independent interpretation demonstrates normal sinus rhythm at 64 bpm without ectopy or acute ST changes. No STEMI. I reviewed her laboratory work and she has normal white count 6.9 with hemoglobin 13.7, hematocrit 41.0, platelet count normal at 225. BMP is grossly unremarkable except for chloride of 110 which I think is nonspecific. High-sensitivity troponin 5. Chest x-ray in 1 view interpreted by myself independently shows no evidence of an acute process, no pneumonia, no pneumothorax. I reviewed the radiology report which confirms my independent interpretation. I received a call from the radiologist regarding the CT of the brain which states is negative for acute process. I also reviewed the radiology report. At this point in time, she states she is having ongoing facial numbness on the left side. Given her risk factors of hypertension, being a smoker, and hypercholesterolemia on medication, I do feel that she is higher risk for stroke and that she requires observation. Once again, her NIH stroke scale is 1 at best for chronic facial droop but otherwise negative. I do not feel that she needs a CTA of the head neck emergently. Additionally she is outside the window for TNK and does not have a debilitating deficit. Patient discussed with Dr. Hamilton for observation in the PCU. She is in stable condition. History & Record Review Discussion w/independent historian: Patient and Family Lab Data Attestation: I reviewed the patient's lab results. Labs: Laboratory Results - last 24 hr 03/29/24 03/29/24 03/29/24 12:33 12:33 12:58 WBC Cancelled 6.9 Corrected WBC Cancelled RBC Cancelled 4.62 Hgb Cancelled 13.7 Hct Cancelled 41.0 MCV Cancelled 88.7 MCH Cancelled 29.7 MCHC Cancelled 33.4 RDW Std Deviation Cancelled 44.1 H RDW Coeff of Cindy Cancelled 13.7 Plt Count Cancelled 225 MPV Cancelled 10.4 Immature Gran % (Auto) Cancelled 0.100 Neut % (Auto) Cancelled 54.3 Lymph % (Auto) Cancelled 36.5 Harvey % (Auto) Cancelled 5.5 Eos % (Auto) Cancelled 2.7 Baso % (Auto) Cancelled 0.9 Absolute Neuts (auto) Cancelled 3.8 Absolute Lymphs (auto) Cancelled 2.53 Total Counted Cancelled Neutrophils % (Manual) Cancelled Band Neutrophils % Cancelled Lymphocytes % (Manual) Cancelled Monocytes % (Manual) Cancelled Eosinophils % (Manual) Cancelled Basophils % (Manual) Cancelled Metamyelocytes % Cancelled Myelocytes % Cancelled Promyelocytes % Cancelled Blast Cells % Cancelled Plasma Cell % (Manual) Cancelled Other Cells % Cancelled Nucleated RBC % Cancelled 0 Nucleated RBCs/100 WBC Cancelled Differential Comment Cancelled Diff Path Review Cancelled Hypersegmented Neuts Cancelled Atypical Lymphocytes Cancelled Reactive Lymphocytes Cancelled Smudge Cells Cancelled Toxic Granulation Cancelled Toxic Vacuolation Cancelled Dohle Bodies Cancelled Mike Rods Cancelled Platelet Estimate Cancelled Plt Morphology Comment Cancelled RBC Morphology Cancelled Cancelled Polychromasia Cancelled Hypochromasia Cancelled Basophilic Stippling Cancelled Anisocytosis Cancelled Microcytosis Cancelled Macrocytosis Cancelled Spherocytes Cancelled Sickle Cells Cancelled Target Cells Cancelled Tear Drop Cells Cancelled Ovalocytes Cancelled Stomatocytes Cancelled Kraus-Ashford Bodies Cancelled Nellie Cells Cancelled Bite Cells Cancelled Crenated Cell Cancelled Acanthocytes (Spur) Cancelled Rouleaux Cancelled Schistocytes Cancelled PT Cancelled INR Cancelled APTT Cancelled Sodium 138 Potassium 4.0 Chloride 110 H Carbon Dioxide 25.0 Anion Gap 3 L BUN 11 Creatinine 0.75 Estim Creat Clear Calc 101.93 Est GFR (MDRD) Af Amer 104 Est GFR (MDRD) Non-Af 86 BUN/Creatinine Ratio 14.7 Glucose 108 H Calcium 9.3 Troponin I High Sens 5 03/29/24 13:31 WBC Corrected WBC RBC Hgb Hct MCV MCH MCHC RDW Std Deviation RDW Coeff of Cindy Plt Count MPV Immature Gran % (Auto) Neut % (Auto) Lymph % (Auto) Harvey % (Auto) Eos % (Auto) Baso % (Auto) Absolute Neuts (auto) Absolute Lymphs (auto) Total Counted Neutrophils % (Manual) Band Neutrophils % Lymphocytes % (Manual) Monocytes % (Manual) Eosinophils % (Manual) Basophils % (Manual) Metamyelocytes % Myelocytes % Promyelocytes % Blast Cells % Plasma Cell % (Manual) Other Cells % Nucleated RBC % Nucleated RBCs/100 WBC Differential Comment Diff Path Review Hypersegmented Neuts Atypical Lymphocytes Reactive Lymphocytes Smudge Cells Toxic Granulation Toxic Vacuolation Dohle Bodies Mike Rods Platelet Estimate Plt Morphology Comment RBC Morphology Polychromasia Hypochromasia Basophilic Stippling Anisocytosis Microcytosis Macrocytosis Spherocytes Sickle Cells Target Cells Tear Drop Cells Ovalocytes Stomatocytes Kraus-Ashford Bodies [place] Cells Bite Cells Crenated Cell Acanthocytes (Spur) Rouleaux Schistocytes PT 13.1 INR 1.0 APTT 28.8 Sodium Potassium Chloride Carbon Dioxide Anion Gap BUN Creatinine Estim Creat Clear Calc Est GFR (MDRD) Af Amer Est GFR (MDRD) Non-Af BUN/Creatinine Ratio Glucose Calcium Troponin I High Sens Radiography Diagnostic Testing: Clinical Impression(s) from Imaging Studies Brain CT 03/29/24 12:17 IMPRESSION: No acute intracranial process identified. Electronically Signed: Paulette Hernandes MD at 13:28 EST , ADDENDUM: 03/29/24 1343 IMPRESSION: No acute intracranial process identified. N.B. : The above Results were Read Back by Paulette Hernandes MD to Hu Santacruz MD, and understanding confirmed on 03/29/2024 13:36:15 (ET). Electronically Signed: Paulette Hernandes MD at 13:28 EST , ADDENDUM: 03/29/24 1352 IMPRESSION: No acute intracranial process identified. N.B. : The above Results were Read Back by Paulette Hernandes MD to Hu Santacruz MD, and understanding confirmed on 03/29/2024 13:45:41 (ET). Electronically Signed: Paulette Hernandes MD at 13:28 EST , Chest X-Ray 03/29/24 12:17 IMPRESSION: No acute cardiopulmonary process identified. Electronically Signed: Paulette Hernandes MD at 13:51 EST , Management Discussion w/another healthcare provider: Hospitalist Discharge Plan Dx/Rx/DC Orders Clinical Impression: Chest pain, Numbness and tingling of left side of face, Left arm numbness Disposition Disposition: [facility]
[2024-03-29 13:05] LABS: Absolute Lymphocyte Count 2.53 X10^3/uL (0.83-4.51); Absolute Neutrophil Count 3.8 X10^3/uL (2.0-7.7); Basophil# 0.06 X10^3/uL; Basophil% 0.9 % (0-1); Eosinophil# 0.19 X10^3/uL; Eosinophils% 2.7 % (0-5); Hemoglobin 13.7 g/dL (12.0-15.0); Lymphocyte # 2.53 X10^3/ul (0.83-4.51); Lymphocyte % 36.5 % (19-41); Mean Corp Hgb Conc 33.4 g/dL (32-36); Mean Corpuscular Hgb 29.7 pg (27.0-32.0); Mean Corpuscular Volume 88.7 fL (81-99); Mean Platelet Vol. 10.4 fl (6.2-12.0); Monocyte# 0.38 X10^3/uL; Monocyte% 5.5 % (0-10); NRBC Flagged by Analyzer 0 % (0-5); Neutrophil # 3.77 X10^3/uL (2.7-7.7); Neutrophil % 54.3 % (47-70); Platelet Count 225 K/mm3 (150-450); RBC Distribution Width CV 13.7 % (11.6-14.6); RBC Distribution Width SD 44.1 fl (35.1-43.9); Red Blood Count 4.62 M/mm3 (4.2-5.4); White Blood Count 6.9 K/mm3 (4.4-11.0)
[2024-03-29 13:06] LABS: Anion Gap 3 (5-15); BUN 11 mg/dL (7-18); BUN/Creat Ratio 14.7 RATIO (10-20); Calcium,Total 9.3 mg/dL (8.5-10.1); Chloride 110 mmol/L (98-107); Creatinine, Serum 0.75 mg/dL (0.55-1.02); EST Glomerular Filtration Rate 86 mL/min (>60); Est Glom Filt Rate - Afr Amer 104 mL/min (>60); Estimated Creatinine Clearance 101.93 ml/min; Glucose 108 mg/dL (74-106); Sodium Level 138 mmol/L (136-145); Troponin-I HS 5 pg/mL (3.0-54.0)
[2024-03-29 13:48] LABS: Prothrombin Time (Protime)PT. 13.1 SECONDS (11.7-14.9)
[2024-03-29 13:49] LABS: Partial Thromboplast Time 28.8 Seconds (24.1-36.2)
--- NOTE | 2024-03-29 14:32 | PCM.HP.STD ---
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 ED on 03/29/2024 with history of onset of left-sided chest discomfort described as a very focal specific left-sided small region of chest jabbing intermittently worse with palpation rated 3-4 out of 10 in severity and paresthesias to the left side of her face and occasionally left upper extremity ongoing over the last 2 to 3 days but increased over the last 24 hours with increased general fatigue and malaise seen in urgent care and diagnosed with bronchitis and administered antibiotic therapies/steroids however this was several weeks prior but no recent fevers or chills at that time although she does report a recent increase nonproductive cough and specifically stating that her left chest wall does feel tender, worse with palpation prompting eventual ED evaluation to be cautious. 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 She is right-hand dominant. She states that she is only intermittently compliant with her medications. In the ED patient with only noted paresthesia and a chronic unchanged left facial droop. Workup in the ED included T97.6, heart 72, BP 130/70, respiratory rate 16, 100% on room air, CBC with WC 6.9, hgb 13.7, platelet 225 without marked shift, unremarkable coags, BMP with chloride 110, glucose 108 otherwise not marked appearing aside BUN/creatinine 11/0.75, GFR 86, troponin 5, chest x-ray with no acute cardiopulmonary findings, CT brain with no acute intracranial finding, EKG with mild SR without acute evidence of ischemia. In the ED the left sided chest pain is reproducible with palpation of the left chest. She does note that she still had mild coughing and that her chest does ache when she coughs. In the ED she specifically notes the regions of paresthesias and it is not all inclusive it is a small spot on the left hand, left forearm and left face near the mouth. [facility] Medical History (Updated 03/29/24 @ 15:[address] Aniyah Hamilton MD) Hypothyroidism Tobacco abuse Obesity Anxiety and depression HLD (hyperlipidemia) Haskins's palsy TIA (transient ischemic attack) HTN (hypertension) Home Medications ?Medication ?Instructions ?Recorded ?Last Taken ?Type aspirin 81 mg chewable tablet 81 mg PO DAILY@0800 PRN pain 04/04/15 Unknown History levothyroxine 75 mcg tablet 100 mcg PO DAILY 04/04/15 Unknown History lisinopril 10 mg tablet 10 mg PO DAILY 04/04/15 Unknown History atorvastatin 80 mg tablet 80 mg PO DAILY 09/04/19 Unknown History clonazepam 1 mg tablet 1 mg PO BID PRN PRN anxiety 03/29/24 Unknown History Allergy/AdvReac Type Severity Reaction Status Date / Time fish oil AdvReac Upset Verified 03/29/24 11:54 Stomach Family History (Updated 03/29/24 @ 15:[address] Aniyah Hamilton MD) Father CAD (coronary artery disease) Heart disease Hypertension Myocardial infarction Mother Cervical cancer Kidney disease Surgical History (Updated 03/29/24 @ 15:[address] Aniyah Hamilton MD) History of vein stripping History of surgery on upper extremity S/P lumpectomy, left breast S/P cholecystectomy Social History (Updated 03/29/24 @ 15:[address] Aniyah Hamilton MD) household members: significant other Smoking Status: Current every day smoker tobacco type: cigarettes Smoking packs per day: 1 Smoking cigarettes per day: 20.0 Years smoked: 34 Smoking pack-years: 34.00 alcohol intake: current alcohol intake frequency: holidays/special occasions only substance use type: does not use ROS ROS Narrative Admission Review of Systems: CONSTITUTIONAL: No weight loss, fever, chills, + weakness or fatigue. HEENT: Eyes: No visual loss, blurred vision, double vision or yellow sclerae. Ears, Nose, Throat: No hearing loss, sneezing, congestion, runny nose or sore throat. SKIN: No rash or itching, lesions, wounds. CARDIOVASCULAR: + Chest discomfort, aching, occasional jabbing sensation. No palpitations, edema, orthopnea, syncopal events. RESPIRATORY: + Persistent cough, not markedly productive sputum. No marked dyspnea, wheezing, hemoptysis. GASTROINTESTINAL: No anorexia, nausea, vomiting or diarrhea, abdominal pain, melena, BRBPR. GENITOURINARY: No dysuria, frequency, urgency or retention. NEUROLOGICAL: + Atypical left upper extremity and left facial paresthesias complicated by previous Haskins's palsy history with left-sided very mild facial droop. No headache, dizziness, syncope, paralysis, ataxia, change in bowel or bladder control, seizure. MUSCULOSKELETAL: + muscle, back pain, joint pain or stiffness. HEMATOLOGIC: No anemia, bleeding or bruising. LYMPHATICS: No enlarged nodes. No history of splenectomy. PSYCHIATRIC: N+ history of anxiety and depression. ENDOCRINOLOGIC: No reports of sweating, cold or heat intolerance. No polyuria or polydipsia. ALLERGIES: No history of asthma, hives, eczema or rhinitis. Vital Signs Vital Signs Vital Signs: 03/29/24 11:52 03/29/24 13:02 03/29/24 13:49 Temperature 97.6 F L Temperature Source Temporal Pulse Rate 72 64 Respiratory Rate 16 11 L Blood Pressure 138/70 H Blood Pressure Mean 92 Pulse Ox 100 97 99 Oxygen Delivery Method Room Air Room Air Room Air Weight Weight: 211 lb 4.8 oz Body Mass Index (BMI) 33.0 Physical Exam Narrative Physical Examination: General: Awake, alert, oriented x 3 and cooperative, seated upright in the ED bed in no apparent distress, notes the paresthesias have been transient and during evaluation points out the locations they are currently present including a very small portion around the left mouth, left hand in a focal spot, left forearm in addition to pointing out a very focal spot on the left chest with jabbing type discomfort, worse with palpation and reproducible. Skin: Normal color, normal turgor, no icterus, no cyanosis. HEENT: AT/NC, EOMI, PERRLA, mildly dry MM, no carotid bruits or JVD noted. Lungs: Diminished, greater bases, proper effort, no rales, ronchi or wheezing. Heart: Regular rate and rhythm; no gallop, rub audible, left spot laterally on the left chest with reproducible discomfort. Abdomen: Soft, obese, NTTP, ND, hyperactive BS, no appreciated HSM. Extremities: No cyanosis, clubbing, or edema. Neurological: Patient awake, alert, oriented as noted, cognitive function intact; pupils equally reactive to light and accommodation, cranial nerves grossly normal aside from very mild left-sided facial droop, moving all 4 extremities, no focal deficits, strength preserved, focal regions of paresthesias reviewed with patient and currently on the left hand and a focal spot on the dorsal aspect, left forearm as well as left face just around the lip, not contiguous. Psychiatric: Affect appears normal, no acute evidence of depressive or anxiety feelings but does have underlying history. Results Lab / Micro Data 03/29/24 12:58 03/29/24 12:33 Labs: Laboratory Results - last 24 hr 03/29/24 12:33: WBC Cancelled, Corrected WBC Cancelled, RBC Cancelled, Hgb Cancelled, Hct Cancelled, MCV Cancelled, MCH Cancelled, MCHC Cancelled, RDW Std Deviation Cancelled, RDW Coeff of Cindy Cancelled, Plt Count Cancelled, MPV Cancelled, Immature Gran % (Auto) Cancelled, Neut % (Auto) Cancelled, Lymph % (Auto) Cancelled, Lares % (Auto) Cancelled, Eos % (Auto) Cancelled, Baso % (Auto) Cancelled, Absolute Neuts (auto) Cancelled, Absolute Lymphs (auto) Cancelled, Total Counted Cancelled, Neutrophils % (Manual) Cancelled, Band Neutrophils % Cancelled, Lymphocytes % (Manual) Cancelled, Monocytes % (Manual) Cancelled, Eosinophils % (Manual) Cancelled, Basophils % (Manual) Cancelled, Metamyelocytes % Cancelled, Myelocytes % Cancelled, Promyelocytes % Cancelled, Blast Cells % Cancelled, Plasma Cell % (Manual) Cancelled, Other Cells % Cancelled, Nucleated RBC % Cancelled, Nucleated RBCs/100 WBC Cancelled, Differential Comment Cancelled, Diff Path Review Cancelled, Hypersegmented Neuts Cancelled, Atypical Lymphocytes Cancelled, Reactive Lymphocytes Cancelled, Smudge Cells Cancelled, Toxic Granulation Cancelled, Toxic Vacuolation Cancelled, Dohle Bodies Cancelled, Mike Rods Cancelled, Platelet Estimate Cancelled, Plt Morphology Comment Cancelled, RBC Morphology Cancelled 03/29/24 12:33: RBC Morphology Cancelled, Polychromasia Cancelled, Hypochromasia Cancelled, Basophilic Stippling Cancelled, Anisocytosis Cancelled, Microcytosis Cancelled, Macrocytosis Cancelled, Spherocytes Cancelled, Sickle Cells Cancelled, Target Cells Cancelled, Tear Drop Cells Cancelled, Ovalocytes Cancelled, Stomatocytes Cancelled, [place] Bodies Cancelled, Nellie Cells Cancelled, Bite Cells Cancelled, Crenated Cell Cancelled, Acanthocytes (Spur) Cancelled, Rouleaux Cancelled, Schistocytes Cancelled, PT Cancelled, INR Cancelled, APTT Cancelled, Sodium 138, Potassium 4.0, Chloride 110 H, Carbon Dioxide 25.0, Anion Gap 3 L, BUN 11, Creatinine 0.75, Estim Creat Clear Calc 101.93, Est GFR (MDRD) Af Amer 104, Est GFR (MDRD) Non-Af 86, BUN/Creatinine Ratio 14.7, Glucose 108 H, Calcium 9.3, Troponin I High Sens 5 03/29/24 12:58: WBC 6.9, RBC 4.62, Hgb 13.7, Hct 41.0, MCV 88.7, MCH 29.7, MCHC 33.4, RDW Std Deviation 44.1 H, RDW Coeff of Cindy 13.7, Plt Count 225, MPV 10.4, Immature Gran % (Auto) 0.100, Neut % (Auto) 54.3, Lymph % (Auto) 36.5, Lares % (Auto) 5.5, Eos % (Auto) 2.7, Baso % (Auto) 0.9, Absolute Neuts (auto) 3.8, Absolute Lymphs (auto) 2.53, Nucleated RBC % 0 03/29/24 13:31: PT 13.1, INR 1.0, APTT 28.8 Imaging Radiology Impression Brain CT 03/29/24 12:17 IMPRESSION: No acute intracranial process identified. Electronically Signed: Paulette Hernandes MD at 13:28 EST Reading Location ID and State: [facility] / [place] Tel , Service support , ADDENDUM: 03/29/24 1343 IMPRESSION: No acute intracranial process identified. N.B. : The above Results were Read Back by Paulette Hernandes MD to Hu Santacruz MD, and understanding confirmed on 03/29/2024 13:36:15 (ET). Electronically Signed: Paulette Hernandes MD at 13:28 EST , ADDENDUM: 03/29/24 1352 IMPRESSION: No acute intracranial process identified. N.B. : The above Results were Read Back by Paulette Hernandes MD to Hu Santacruz MD, and understanding confirmed on 03/29/2024 13:45:41 (ET). Electronically Signed: Paulette Hernandes MD at 13:28 EST , Chest X-Ray 03/29/24 12:17 IMPRESSION: No acute cardiopulmonary process identified. 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 ED on 03/29/2024 with history of onset of left-sided chest discomfort and paresthesias to the left side of her face and occasionally left upper extremity ongoing over the last 2 to 3 days but increased over the last 24 hours with increased general fatigue and malaise seen in urgent care and diagnosed with bronchitis and administered antibiotic therapies but no recent fevers or chills although she does report a recent cough and specifically stating that her left chest wall does feel tender, worse with palpation prompting eventual ED evaluation to be cautious. #1. Left-sided facial paresthesias, left upper extremity paresthesias, Atypical pattern, lower suspicion for TIA/CVA complicated by history of Haskins's palsy with chronic left-sided facial droop, but has not been compliant with medication does have CVA/TIA risk factor: Will admit to PCU, will obtain MRI Brain, CTA head and neck, ECHO, PT/OT/Speech/Nutrition evaluation per protocol. Will allow permissive HTN, maintain on asa, statin w/ AM FLP, fall precautions. Mag, TSH, FLP, HgbA1c requested. Once work-up obtained low threshold to obtain Neurology consultation. If the workup is unremarkable may require further outpatient evaluation/nerve conduction study/further neck evaluation. #2. Atypical chest pain, possibly musculoskeletal especially given recent cough with tenderness palpation: EKG in ED sinus rhythm with no acute evidence of ischemia, CXR w/ no acute cardiopulmonary, initial trop 5. Will place on a monitored bed to assure no acute myocardial infarction with serial cardiac enzymes and EKGs. Magnesium level requested. FLP in AM. Will maintain on aspirin therapy and statin as noted. Echocardiogram requested given #1. Will need further evaluation #1 prior to any consideration for stressing if felt appropriate at that time however lower suspicion. 04/02 cardiac catheterization with elevation of the LV end-diastolic pressure compatible with decreased diastolic compliance with LV with preserved EF, wall motion and systolic function, coronary angiography with no angiographically significant appearing coronary stenosis, valvular interrogation with mild MV regurgitation likely PVC induced. UDS requested. #3. Recent upper respiratory infection, possible bronchitis: CXR w/ chronic changes, CBC with no marked WC elevation or left shift, will maintain on ATC budesonide therapy, PRN albuterol, IV methylprednisolone, HOB, IS parameters, will obtain sputum Cx, request full respiratory viral panel, procalcitonin, will hold further antibiotics pending further workup. #4. Hypertension: Given presentation will maintain permissive hypertension with current agents per stroke protocol. #5. Hyperlipidemia: Continue home statin regimen. AM FLP. #6. Hypothyroidism: Continue home levothyroxine regimen, TSH pending. #7. Chronic Kidney Disease Stage II per GFR trending: Admission BUN/Cr 11/0.75, GFR 86, baseline renal function similar 0.7-0.9, repeat BMP in AM. #8. Obesity: Weight loss and lifestyle changes encouraged. #9. Anxiety and Depression: Noted in chart history, per current list does not appear to be on any regimen, encourage continued outpatient follow-up as previously arranged. Last noted medications were clonazepam 1 mg p.o. twice daily as needed and escitalopram 10 mg once daily however this was last filled in 11/2023, clarifying. #10. Tobacco Abuse: Encouraged cessation, inpatient consultation per RT, NR if desired. #11. DVT prophylaxis: Lovenox. Charges/Coding Visit Charges Inpatient E&M: 68157 Init Hosp L3
--- NOTE | 2024-03-29 14:38 | CT_ITS ---
We are attempting to reach an attending provider to discuss findings. An addendum with communication details will be sent when the communication is complete. HISTORY: Paresthesias, TIA. TECHNIQUE: [place]/head and carotid CT angiogram protocol was performed after the intravenous administration of 100 mL Isovue 370. NASCET criteria using the distal ICAs for comparison were used for evaluation of stenoses. 3D reconstructions were reviewed. A radiation dose optimization technique was used for this scan. 2058 images. COMPARISON: CT head same day. FINDINGS: AORTIC ARCH AND BRANCHES: Mild atherosclerosis. RIGHT CCA: No occlusion, significant stenosis or dissection. RIGHT ICA: No occlusion, significant stenosis or dissection. LEFT CCA: No occlusion, significant stenosis or dissection. Calcified plaque at the bifurcation. LEFT ICA: No occlusion, significant stenosis or dissection. RIGHT VERTEBRAL ARTERY: No occlusion, significant stenosis or dissection. LEFT VERTEBRAL ARTERY: No occlusion, significant stenosis or dissection. ICAs: No significant stenosis at the intracranial/visualized segments. ACAs: No significant stenosis at the visualized segments. Hypoplastic left A1 segment. MCAs: No significant stenosis at the visualized segments. senior principal software engineer: No significant stenosis at the visualized segments. Left origin. BASILAR ARTERY: No significant stenosis. VERTEBRAL ARTERIES: No significant stenosis at the intradural/visualized segments. No evidence of intracranial aneurysm or vascular malformation. CT/STROKE CTA Head AND Neck W/Con IMPRESSION: No evidence for significant stenosis or occlusion in the carotid or vertebral arteries of the neck. No evidence for large vessel occlusion or other focal vascular abnormality in the [place] region. Electronically Signed: Paulette Hernandes MD at 15:24 EST ,
[2024-03-29 15:44] LABS: Magnesium 1.9 mg/dL (1.6-2.6)
--- NOTE | 2024-03-29 16:20 | ECHOD_ITS ---
Reason For Study: TIA/CVA Procedure This was a 2D Doppler, Color Flow transthoracic echocardiogram. Exam performed portable in patient room. Left Ventricle Normal LV size. Moderate concentric left ventricular hypertrophy. Mid cavitary false tendon noted. The left ventricular ejection fraction is 60 %. No regional wall motion abnormalities noted. Right Ventricle Normal RV size. Normal systolic function. Atria Normal left atrium. Normal right atrium. Mitral Valve Normal mitral valve. Tricuspid Valve Normal tricuspid valve. Aortic Valve Trisinus/trileaflet aortic valve. Mild focal aortic valve calcification. Peak aortic valve gradient 35 mmHg. Mean aortic valve gradient 20 mmHg. Mild to moderate aortic stenosis. Pulmonic Valve Normal pulmonic valve. Great Vessels Normal aortic root. The pulmonary artery is normal size. Normal inferior vena cava. Pericardium/Pleural No pericardial effusion. MMode/2D Measurements & Calculations LVIDd: 4.0 cm IVSd: 1.4 cm LVOT diam: 2.0 cm LVIDs: 2.6 cm LVPWd: 1.4 cm LVOT area: 3.1 cm2 RVDd: 2.8 cm FS: 34.7 % Ao root diam: 2.8 cm LAV(MOD-bp): 49.0 ml LVAd ap4: 30.1 cm2 LAV(MOD-bp) Indexed: 23.7 ml/m2 LVLd ap4: 8.4 cm LAV(MOD-sp2): 50.9 ml EDV(MOD-sp4): 90.0 ml LAV(MOD-sp4): 40.4 ml EDV(sp4-el): 92.2 ml LVAs ap4: 15.2 cm2 LVLs ap4: 6.8 cm ESV(MOD-sp4): 29.4 ml ESV(sp4-el): 29.0 ml EF(MOD-sp4): 67.4 % EF(sp4-el): 68.5 % SV(MOD-sp4): 60.6 ml SV(sp4-el): 63.2 ml LA A4 area: 15.8 cm2 SI(MOD-sp4): 29.3 ml/m2 LA dimension(2D): 3.8 cm RA A4 area: 9.6 cm2 Time Measurements MV dec time: 0.13 sec Doppler Measurements & Calculations MV E max eric: 89.4 cm/sec Lat Peak E' Eric: 10.3 cm/sec Med Peak E' Eric: 8.8 cm/sec MV A max eric: 80.7 cm/sec E/E' lat: 8.7 E/E' med: 10.2 MV E/A: 1.1 MV V2 max: 122.2 cm/sec Ao V2 max: 299.5 cm/sec MV max P.0 mmHg MV dec slope: 699.8 cm/sec2 Ao max P.9 mmHg MV V2 mean: 69.0 cm/sec Ao V2 mean: 212.7 cm/sec MV mean P.2 mmHg Ao mean P.2 mmHg MV V2 VTI: 37.8 cm Ao V2 VTI: 77.7 cm PA V2 max: 73.8 cm/sec PA V2 mean: 55.2 cm/sec ECHO/Echo Complete Interpretation Summary Normal LV size. Moderate concentric left ventricular hypertrophy. The left ventricular ejection fraction is 60 %. Mild focal aortic valve calcification. Mean aortic valve gradient 20 mmHg. Mild to moderate aortic stenosis. Ordering Physician: Aniyah Hamilton Referring Physician: Hu Santacruz Performed By: Yovana Husain RCS
[2024-03-29 16:44] LABS: Troponin-I HS 6 pg/mL (3.0-54.0)
[2024-03-29 16:54] LABS: Procalcitonin < 0.04 ng/mL (0.00-0.09)
[2024-03-29] MEDS: Aspirin 325 MG Tablet PO (17:14)
[2024-03-29] MEDS: 0.9% Normal Saline (1000mL) 1,000 ML 100 ML IV (17:14)
[2024-03-29] MEDS: 0.9% Saline Lock 10 ML Syringe IV (17:18)
[2024-03-29 19:28] LABS: Troponin-I HS 5 pg/mL (3.0-54.0)
[2024-03-29] MEDS: Budesonide Respules 0.5 MG/2 ML AMPUL.NEB. INHALATION (20:05)
[2024-03-29 21:17] LABS: Amphetamine Urine VISTA NEGATIVE (<1000 ng/mL); Barbiturate Urine VISTA NEGATIVE (< 200 ng/mL); Benzodiazepine Urine VISTA NEGATIVE (< 200 ng/mL); Cocaine Urine VISTA NEGATIVE (< 300 ng/mL); Ecstacy Urine VISTA NEGATIVE (< 500 ng/mL); Methadone Urine VISTA NEGATIVE (< 300 ng/mL); PCP Urine VISTA NEGATIVE (< 25 ng/mL); THC Urine VISTA NEGATIVE (< 50 ng/mL); Vista UDS pH Range 8
[2024-03-30] MEDS: 0.9% Normal Saline (1000mL) 1,000 ML 100 ML IV (02:01)
[2024-03-30 03:30] VITALS: BP 109/58; PULSE 62; RESP 18; TEMP 36.6; O2SAT 98
[2024-03-30 03:47] VITALS: PULSE 62
[2024-03-30 05:01] VITALS: BMI 32.8
[2024-03-30 05:54] LABS: Absolute Lymphocyte Count 3.01 X10^3/uL (0.83-4.51); Absolute Neutrophil Count 3.7 X10^3/uL (2.0-7.7); Basophil# 0.05 X10^3/uL; Basophil% 0.7 % (0-1); Eosinophil# 0.25 X10^3/uL; Eosinophils% 3.4 % (0-5); Hematocrit 38.7 % (37-47); Hemoglobin 12.6 g/dL (12.0-15.0); Lymphocyte # 3.01 X10^3/ul (0.83-4.51); Lymphocyte % 40.6 % (19-41); Mean Corp Hgb Conc 32.6 g/dL (32-36); Mean Platelet Vol. 10.4 fl (6.2-12.0); Monocyte# 0.41 X10^3/uL; Monocyte% 5.5 % (0-10); NRBC Flagged by Analyzer 0 % (0-5); Neutrophil # 3.67 X10^3/uL (2.7-7.7); Neutrophil % 49.5 % (47-70); Platelet Count 210 K/mm3 (150-450); RBC Distribution Width CV 13.7 % (11.6-14.6); RBC Distribution Width SD 44.7 fl (35.1-43.9); Red Blood Count 4.35 M/mm3 (4.2-5.4); White Blood Count 7.4 K/mm3 (4.4-11.0)
[2024-03-30 06:26] LABS: ALB/GLOB Ratio 0.9 RATIO (0.9-2.4); AST(SGOT) 14 U/L (15-37); Alanine Aminotransfer ALT/SGPT 17 U/L (13-56); Alkaline Phosphatase 79 U/L (45-117); Anion Gap 1 (5-15); BUN 11 mg/dL (7-18); BUN/Creat Ratio 15.1 RATIO (10-20); Calcium,Total 8.5 mg/dL (8.5-10.1); Chloride 112 mmol/L (98-107); Cholesterol 137 mg/dL (200); Creatinine, Serum 0.73 mg/dL (0.55-1.02); EST Glomerular Filtration Rate 88 mL/min (>60); Est Glom Filt Rate - Afr Amer 107 mL/min (>60); Estimated Creatinine Clearance 104.34 ml/min; Globulin 3.3 g/dL (2.2-4.2); Glucose 113 mg/dL (74-106); High Density Lipoprotein 32 mg/dL; Potassium 4.3 mmol/L (3.5-5.1); Protein, Total 6.3 g/dL (6.4-8.2); Sodium Level 140 mmol/L (136-145); Triglycerides 154 mg/dL; Very Low Density Lipoprotein 31 mg/dL (5-40)
[2024-03-30] MEDS: Budesonide Respules 0.5 MG/2 ML AMPUL.NEB. INHALATION (07:10)
[2024-03-30 07:11] VITALS: PULSE 69; RESP 16; O2SAT 98
[2024-03-30 07:50] LABS: Hemoglobin A1c 5.9 % (3.8-5.6)
[2024-03-30 08:16] VITALS: BP 104/63; PULSE 60; RESP 16; TEMP 36.5; O2SAT 97
[2024-03-30] MEDS: Levothyroxine 100 MCG Tablet PO (08:27)
[2024-03-30] MEDS: LORazepam 0.5 MG Tablet PO (09:31)
[2024-03-30 12:15] VITALS: BP 115/71; PULSE 70
[2024-03-30 12:17] VITALS: BMI 32.8
--- NOTE | 2024-03-30 14:51 | CASEMGMT ---
SW did not complete a PHQ 9 with patient as per physician she did not have a Stroke or TIA. Nancy LIVE
--- NOTE | 2024-03-30 14:59 | DCINST_ITS ---
Discharge Instructions Diet Discharge Diet: No restrictions DC O2, CPAP, BIPAP needs Home O2 Discharge instructions: No Dressing / Incision Discharge Activity: Return to Normal Activity Weight Bearing Status: Weight bearing as tolerated Follow Up Care Test Results: Test results from this visit will be discussed in further detail at your follow- up appointment, if applicable. Discharge Plan Admission Admit Date/Time: 03/29/24 14:33 Primary Reason for Your Visit: facial numbness Attending Provider: David Francis Primary Care Provider: Tree Galvan Consulting Providers: Aniyah Hamilton Discharge Orders/Prescriptions Prescriptions: Continued levothyroxine 75 MCG tablet 100 mcg PO DAILY Patient Comments: THYROID lisinopril 10 MG tablet 10 mg PO DAILY Patient Comments: BLOOD PRESSURE/HEART aspirin 81 MG tablet,chewable 81 mg PO DAILY@0800 PRN (Reason: pain) Patient Comments: HEART HEALTH atorvastatin 80 mg tablet 80 mg PO DAILY Patient Comments: TAKE 1 TABLET BY MOUTH EVERYDAY AT BEDTIME clonazepam 1 mg tablet 1 mg PO BID PRN PRN (Reason: anxiety) Referrals / Follow Up: Tree Galvan MD [Primary Care Provider] - Within 1 Month Disposition Disposition (needs filled in before D/C Order can be placed): Home, Self Care
--- NOTE | 2024-03-30 15:03 | DS.PCM_ITS ---
Providers Date of Admission: 03/29/24 Date of Discharge: 03/30/24 Primary Care Physician: Dr. Tree Galvan MD Reason For Visit: CP, TIA Diagnosis Discharge Diagnosis (1) Atypical chest pain: Status: Acute Code(s): R07.89 - Other chest pain Plan 1. Paresthesias of the left arm and face-etiology unknown #2 chest pain-musculoskeletal in nature #3 mild to moderate aortic stenosis #4 essential hypertension #5 hypothyroidism Medications at Discharge Home Medications aspirin 81 mg chewable tablet 81 mg PO DAILY@0800 PRN pain 04/04/15 levothyroxine 75 mcg tablet 100 mcg PO DAILY thyroid 04/04/15 lisinopril 10 mg tablet 10 mg PO DAILY 04/04/15 atorvastatin 80 mg tablet 80 mg PO DAILY cholesterol 09/04/19 clonazepam 1 mg tablet 1 mg PO BID PRN PRN anxiety 03/29/24 Hospital Course Operations None Procedures 2-D Echocardiogram Summary of Care Provided Minutes Spent on Discharge: 31 Hospital Course: This 53-year-old white female was seen in the emergency room at [facility] with complaints of tingling and numbness of the left side of her face and her left arm, she also complained of left upper chest pain. She does not know when the symptoms started but stated it was greater than 24 hours. Workup in the emergency room included labs which were unremarkable including a troponin, CT of the brain was unremarkable, chest x-ray was unremarkable, and EKG showed no evidence of ischemia. Patient was placed in observation status on PCU, cardiac enzymes remain normal, patient had an echocardiogram which showed a normal EF and mild to moderate aortic stenosis. Patient had an MRI of the brain which showed no evidence of acute or remote stroke, CTA of the head and neck was unremarkable. On 03/30/2024, patient was seen and examined: On examination she appeared in good health and spirits, she does not appear to be in any distress. Vital signs as documented. Skin warm and dry and without overt rashes. Neck without JVD, thyroid appears normal, trachea is midline, neck is supple. Lungs clear, normal air movement was noted. Heart exam notable for regular rhythm, normal sounds and absence of murmurs, rubs or gallops. Abdomen unremarkable and without evidence of organomegaly, masses, or abdominal aortic enlargement, bowel sounds are present in all 4 quadrants, no abdominal tenderness was noted. Extremities nonedematous, no cyanosis was noted, no clubbing was noted. Neuro: Cranial nerves II through XII are grossly intact, no focal motor deficits were noted, sensation to light touch and pinprick is intact, motor exam 5/5 throughout. Psych: Patient is alert and oriented x3, she does not appear anxious or depressed, she does not appear agitated. Patient was discharged home in stable condition on 03/30/2024 Weight / BMI Weight Weight: 95.164 kg Body Mass Index (BMI) 32.8 ABG / Lab / Microbiology Data 03/30/24 05:37 03/30/24 05:37 Laboratory: Laboratory Results - last 24 hr 03/29/24 12:33: Magnesium 1.9 03/29/24 15:53: Troponin I High Sens 6, Procalcitonin < 0.04 03/29/24 18:59: Troponin I High Sens 5 03/29/24 20:20: Urine Opiates Screen NEGATIVE, Urine Methadone Screen NEGATIVE, Ur Barbiturates Screen NEGATIVE, Ur Phencyclidine Scrn NEGATIVE, Ur Amphetamines Screen NEGATIVE, MDMA (Ecstasy) Screen NEGATIVE, U Benzodiazepines Scrn NEGATIVE, Urine Cocaine Screen NEGATIVE, U Cannabinoids Screen NEGATIVE, Ur Drug Screen Comment 03/30/24 05:37: WBC 7.4, RBC 4.35, Hgb 12.6, Hct 38.7, MCV 89.0, MCH 29.0, MCHC 32.6, RDW Std Deviation 44.7 H, RDW Coeff of Cindy 13.7, Plt Count 210, MPV 10.4, Immature Gran % (Auto) 0.300, Neut % (Auto) 49.5, Lymph % (Auto) 40.6, [place] % (Auto) 5.5, Eos % (Auto) 3.4, Baso % (Auto) 0.7, Absolute Neuts (auto) 3.7, Absolute Lymphs (auto) 3.01, Nucleated RBC % 0, Sodium 140, Potassium 4.3, C hloride 112 H, Carbon Dioxide 26.0, Anion Gap 1 L, BUN 11, Creatinine 0.73, Estim Creat Clear Calc 104.34, Est GFR (MDRD) Af Amer 107, Est GFR (MDRD) Non-Af 88, BUN/Creatinine Ratio 15.1, Glucose 113 H, Hemoglobin A1c 5.9 H, Calcium 8.5, Total Bilirubin 0.30, AST 14 L, ALT 17, Alkaline Phosphatase 79, Total Protein 6.3 L, Albumin 3.0 L, Globulin 3.3, Albumin/Globulin Ratio 0.9, Triglycerides 154, Cholesterol 137, LDL Cholesterol 74, VLDL Cholesterol 31, HDL Cholesterol 32 L Microbiology: Microbiology 03/29/24 17:29 Mucosa - Nasopharyngeal Respiratory Panel (PCR) - Final 03/29/24 17:10 Mucosa - Nasopharyngeal Coronavirus COVID-19 PCR - Final Radiography Diagnostic Testing: Radiology Impression Head/Neck CTA 03/29/24 14:38 IMPRESSION: No evidence for significant stenosis or occlusion in the carotid or vertebral arteries of the neck. No evidence for large vessel occlusion or other focal vascular abnormality in the false pass of [place] region. Electronically Signed: Paulette Hernandes MD at 15:24 EST , ADDENDUM: 03/29/24 1537 IMPRESSION: No evidence for significant stenosis or occlusion in the carotid or vertebral arteries of the neck. No evidence for large vessel occlusion or other focal vascular abnormality in the false pass of [place] region. N.B. : The above Results were Read Back by Paulette Hernandes MD to Hu Campbell MD, and understanding confirmed on 03/29/2024 15:30:28 (ET). Electronically Signed: Paulette Hernandes MD at 15:24 EST , Echocardiogram 03/29/24 16:20 Interpretation Summary Normal LV size. Moderate concentric left ventricular hypertrophy. The left ventricular ejection fraction is 60 %. Mild focal aortic valve calcification. Mean aortic valve gradient 20 mmHg. Mild to moderate aortic stenosis. Ordering Physician: Aniyah Hamilton Referring Physician: Hu Santacruz Performed By: Yovana Husain RCS Brain MRI 03/30/24 16:20 IMPRESSION: 1. Normal unenhanced MRI of the brain. Electronically Signed: Juan Antonio Cool MD at 11:37 EST Reading Location ID and State: [facility] / [place] , Service support , D/C Instructions Discharge Diet: No restrictions Weight Bearing Status: Weight bearing as tolerated DC O2, CPAP, BIPAP Needs Home O2 Discharge instructions: No Meaningful Use Info Meaningful Use Meaningful Use Diagnoses (Choose all that apply): None applicable Ischemic Stroke Statin Dosing Therapy Reference: STATIN DOSE THERAPY REFERENCE: * Patients > 75 years receive moderate or high dose statin therapy. * Patients 75 years or YOUNGER should receive HIGH intensity statin dose unless contraindicated. You will be required to document reason for non-treatment if statin daily dose does not meet guidelines. HIGH DOSE STATIN THERAPY DAILY Atorvastatin > than or = to 40 mg Rosuvastatin > than or = to 20 mg Amlodipine + Atorvastatin > than or = to 2.5/40 mg Ezetimibe + Simvastatin 10/80 mg Simvastatin 80mg Discharge Plan Admission Admit Date/Time: 03/29/24 14:33 Primary Reason for Your Visit: facial numbness Attending Provider: David Francis Primary Care Provider: Tree Galvan Consulting Providers: Aniyah Hamilton Discharge Orders/Prescriptions Prescriptions: Continued levothyroxine 75 MCG tablet 100 mcg PO DAILY Patient Comments: THYROID lisinopril 10 MG tablet 10 mg PO DAILY Patient Comments: BLOOD PRESSURE/HEART aspirin 81 MG tablet,chewable 81 mg PO DAILY@0800 PRN (Reason: pain) Patient Comments: HEART HEALTH atorvastatin 80 mg tablet 80 mg PO DAILY Patient Comments: TAKE 1 TABLET BY MOUTH EVERYDAY AT BEDTIME clonazepam 1 mg tablet 1 mg PO BID PRN PRN (Reason: anxiety) Referrals / Follow Up: Tree Galvan MD [Primary Care Provider] - Within 1 Month Disposition Disposition (needs filled in before D/C Order can be placed): Home, Self Care Charges/Coding Visit Charges Inpatient E&M: 16310 Disch Hosp >30min
[2024-03-30 15:20] VITALS: BP 131/76; PULSE 71; RESP 16; TEMP 36.7; O2SAT 98
--- NOTE | 2024-03-30 16:03 | CASEMGMT ---
Patient has order for discharge. RN CM in to discuss needs at discharge. Patient is independent in the room. Patient denies needs or help at discharge. Patient denies further questions or concerns.
--- NOTE | 2024-03-30 16:20 | MRI_ITS ---
STUDY: MRI BRAIN WITHOUT CONTRAST REASON FOR EXAM: Female, 53 years old. TIA/CVA, FACIAL TINGLING TECHNIQUE: Standardized multiplanar fat and water weighted pulse sequences were obtained. COMPARISON: Head CT dated March 2024 FINDINGS: Normal size of the ventricles and extra-axial spaces for the patient''s age. Normal white matter tracts of the supratentorial brain. There is no evidence for recent intracranial ischemia or other cause of cytotoxic edema on diffusion weighted imaging (DWI). Normal T2* images of the brain without demonstrated susceptibility artifact. There is no demonstrated hemosiderin stain. There are no demyelinating plagues of the supratentorial brain, brainstem or cerebellum. There are no findings suspicious for multiple sclerosis (MS). Normal bilateral basal ganglia. Normal thalami. There is no extra-axial fluid accumulation. Normal flow voids within the major intracranial circulation suggesting patency by spin echo criteria. Normal sella turcica, pituitary gland, infundibular stalk, optic chiasm and hypothalamus. Normal tectal plate and pineal gland. Normal midbrain, shawn and medulla. Normal cerebellum. Normal basal cisterns. Normal bilateral temporal bones. Normal bilateral internal auditory canals. No demonstrated orbital abnormality, within the constraints of a routine brain study. Normal visualized paranasal sinuses. Normal calvarium and skull base. Normal visualized soft tissue structures. Normal visualized upper cervical spine. Bilateral mastoid sinuses are mildly opacified. MRI/Brain without Contrast IMPRESSION: 1. Normal unenhanced MRI of the brain. Electronically Signed: Juan Antonio Cool MD at 11:37 EST ,
== END 2024-03-30 16:23 | disposition home or self-care (01) ==
LOC: ED 14:32 → PCU 14:42
PROVIDERS: Admitting Provider Family Medicine; Emergency Provider Emergency Medicine; PCP Family Medicine; Referring Provider Emergency Medicine; Visit Provider Internal Medicine
DX: R07.89 Other chest pain (principal); I35.0 Nonrheumatic aortic (valve) stenosis; I12.9 Hypertensive chronic kidney disease with stage 1 through stage 4 chronic kidney disease, or unspecified chronic kidney disease; R20.2 Paresthesia of skin; E66.9 Obesity, unspecified; F17.210 Nicotine dependence, cigarettes, uncomplicated; Z79.82 Long term (current) use of aspirin; E78.5 Hyperlipidemia, unspecified; R20.0 Anesthesia of skin; G51.0 Bell's palsy; Z86.73 Personal history of transient ischemic attack (TIA), and cerebral infarction without residual deficits; Z79.899 Other long term (current) drug therapy; Z79.890 Hormone replacement therapy; E03.9 Hypothyroidism, unspecified; N18.2 Chronic kidney disease, stage 2 (mild); J40 Bronchitis, not specified as acute or chronic; F41.9 Anxiety disorder, unspecified; Z68.33 Body mass index [BMI] 33.0-33.9, adult
CPT/HCPCS: 36415; 70450; 70496; 70498; 70551; 71045; 80048; 80053; 80061; 80307; 83036; 83735; 84145; 84484; 85025; 85610; 85730; 87633; 87635; 92610; 93005; 93306; 94640; 94668; 94762; 96360; 96361; 97802; 99221; 99285; Q9967; A4216; G0378